=== PATIENT | male | born 1960 | race Caucasian/White ===

== ENCOUNTER 2023-02-09 10:41 | Emergency (ER) | payer OTHER ==
[~2023-02-09] VITALS: Ht 172.7 cm; Wt 111.1 kg
[2023-02-09 10:56] VITALS: BP 175/104
[2023-02-09 11:01] VITALS: BP 202/109
[2023-02-09 11:03] VITALS: BP 189/98
[2023-02-09] MEDS ORDERED: CEPHALEXIN500 MG PO (11:07)
[2023-02-09 11:08] VITALS: BP 171/104
[2023-02-09 11:16] VITALS: BP 161/92
[2023-02-09 12:28] VITALS: BP 161/92
== END 2023-02-09 12:34 | disposition home or self-care (01) | DRG 605 ==
LOC: ED 10:41
PROC: 0HQGXZZ Repair Left Hand Skin, External Approach (ICD-10-PCS; principal; 2023-02-09)
DX: S61.217A Laceration without foreign body of left little finger without damage to nail, initial encounter (principal); W31.2XXA Contact with powered woodworking and forming machines, initial encounter; Y93.89 Activity, other specified; Y92.89 Other specified places as the place of occurrence of the external cause; Y99.0 Civilian activity done for income or pay